=== PATIENT | male | born 1950 | race Caucasian/White ===

== ENCOUNTER 2017-06-13 09:00 | Inpatient (IN) | payer OTHER, MEDICARE ==
[~2017-06-13] VITALS: Ht 167.6 cm; Wt 98.5 kg
[2017-07-03] VITALS (10 sets, daily range): BP systolic 138–148; BP diastolic 71–78; PULSE 62–76; RESP 16–18; TEMP 97.6–98.5; O2SAT 93–96
--- NOTE | 2017-07-03 06:33 | HHI.HP ---
History of Present Illness Chief Complaint: AAA and R MAUDE aneurysm History of Present Illness 67 yo male with AAA, asymptomatic. Measures 5.6 cm. Presents for elective repair to include EVAR and RIGHT hypogastric embolization. Past/Family/Social History Past Medical History AAA CAD - recent LHC was negative Hypercholesterolemia DM tobacco abuse COPD Past Surgical History skin CA LHC with stents Social History tobacco abuse Family History brother with AAA Review of Systems Constitutional: DENIES: Fatigue, Chills Respiratory: COMPLAINS OF: Cough, Sputum production, DENIES: Shortness of breath Cardiovascular: COMPLAINS OF: Claudication, DENIES: Chest pain, Dyspnea on Exertion Physical Exam Neuro: resting comfortably, GONZALES HEENT: NC/AT; anicteric sclera Neck: no JVD Heart: reg rate, no M Lungs: clear B Abdomen: nontender Vascular: palpable femoral pulses Extremities: R UE ecchymoses from diagnostic LHC, nontender Cr 0.98 INR 1.0 Hct 48 plt 154 UA negative CXR negative EKG sinus bradycardia without specific ST changes CTA reviewed Caprini VTE Risk Assessment Caprini VTE Risk Assessment: Mod/High Risk (score >= 2) Caprini Risk Assessment Model Point Value = 1 Point Value = 2 Point Value = 3 Point Value = 5 Age 41-60 Minor surgery BMI > 25 kg/m2 Swollen legs Varicose veins or History of unexplained or recurrent spontaneous Oral contraceptives or hormone replacement Sepsis (< 1 month) Serious lung disease, including pneumonia (< 1 month) Abnormal pulmonary function Acute myocardial infarction Congestive heart failure (< 1 month) History of inflammatory bowel disease Medical patient at bed rest Age 61-74 Arthroscopic surgery Major open surgery (> 45 min) Laparoscopic surgery (> 45 min) Malignancy Confined to bed (> 72 hours) Immobilizing plaster cast Central venous access Age >= 75 History of VTE Family history of VTE Factor V Leiden Prothrombin [id number] Lupus anticoagulant Anticardiolipin antibodies Elevated serum homocysteine Heparin-induced thrombocytopenia Other congenital or acquired thrombophilia Stroke (< 1 month) Elective arthroplasty Hip, pelvis, or leg fracture Acute spinal cord injury (< 1 month) Prophylaxis Regimen Total Risk Factor Score Risk Level Prophylaxis Regimen 0-1 Low Early ambulation 2 Moderate Order ONE of the following: *Sequential Compression Device (SCD) *Heparin 5000 units SQ BID 3-4 Higher Order ONE of the following medications: *Heparin 5000 units SQ TID *Enoxaparin/Lovenox 40 mg SQ daily (WT < 150 kg, CrCl > 30 mL/min) *Enoxaparin/Lovenox 30 mg SQ daily (WT < 150 kg, CrCl > 10-29 mL/min) *Enoxaparin/Lovenox 30 mg SQ BID (WT < 150 kg, CrCl > 30 mL/min) AND/OR *Sequential Compression Device (SCD) 5 or more Highest Order ONE of the following medications: *Heparin 5000 units SQ TID (Preferred with Epidurals) *Enoxaparin/Lovenox 40 mg SQ daily (WT < 150 kg, CrCl > 30 mL/min) *Enoxaparin/Lovenox 30 mg SQ daily (WT < 150 kg, CrCl > 10-29 mL/min) *Enoxaparin/Lovenox 30 mg SQ BID (WT < 150 kg, CrCl > 30 mL/min) AND *Sequential Compression Device (SCD) Assessment and Plan Plan EVAR with R hypogastric embolization Discussed procedure again with the patient and his To OR Discharge Planning Likely tomorrow (POD#1) [phone] Frederick Murray MD Jul 03, 2017 06:33
[2017-07-03] MEDS ORDERED: ASPI-183 PO (07:14)
[2017-07-03] MEDS ORDERED: LOSA100T3 PO (07:14)
[2017-07-03] MEDS ORDERED: HEPARIN SODIUM - IV 10,000 UNITS/10 ML VIAL ONE (07:14)
[2017-07-03] MEDS ORDERED: SIMV40TA PO (07:14)
[2017-07-03] MEDS ORDERED: METO100T PO (07:14)
[2017-07-03] MEDS ORDERED: METF500T PO (07:14)
[2017-07-03] MEDS ORDERED: HEPARIN-NS/PF INJ 500 ML ONE (07:14)
[2017-07-03] MEDS ORDERED: PROTAMINE SULFATE 50 MG/5 ML VIAL ONE ×2 (07:14→09:05)
[2017-07-03] MEDS ORDERED: ceFAZolin 2 GM PREMIX 50 ML ONE (07:15)
[2017-07-03] MEDS ORDERED: MIDAZOLAM HCL 2 MG/2 ML VIAL ONE (07:26)
[2017-07-03] MEDS ORDERED: FAMOTIDINE 20 MG/2 ML VIAL ONE (07:27)
[2017-07-03] MEDS ORDERED: ACETAMINOPHEN 1000 MG/100 ML 100 ML IV ONE (07:27)
[2017-07-03] MEDS ORDERED: MAGNESIUM HYDROXIDE SUSP 30 ML CUP PO PRN (07:30)
[2017-07-03] MEDS ORDERED: BISACODYL 10 MG SUPP RECTAL PRN (07:30)
[2017-07-03] MEDS ORDERED: LACTULOSE SYRUP 20 GM/30 ML CUP PO PRN (07:30)
[2017-07-03] MEDS ORDERED: DEXTROSE 50% IN WATER 50 ML VIAL(D50) IV PUSH PRN (07:30)
[2017-07-03] MEDS ORDERED: SENNOSIDES 8.6 MG TAB PO PRN (07:30)
[2017-07-03] MEDS ORDERED: HYDROmorphone HCL 2 MG TAB PO PRN (07:30)
[2017-07-03] MEDS ORDERED: GLUCAGON 1 MG/ML VIAL OTHER PRN (07:30)
[2017-07-03 07:32] LABS: AUTOMATED NEUTROPHIL # 6.2 TH/MM3 (1.8-7.7); BASOPHIL # 0.1 TH/MM3 (0-0.2); BASOPHIL % 0.8 % (0.0-2.0); EOSINOPHIL # 0.3 TH/MM3 (0-0.4); EOSINOPHIL % 3.4 % (0.0-4.0); HEMATOCRIT 45.6 % (39.0-51.0); HEMO FLAGS DIFF FINAL; LYMPH % 26.1 % (9.0-44.0); LYMPHOCYTE # 2.6 TH/MM3 (1.0-4.8); MEAN CELL VOLUME 93.6 FL (80.0-100.0); MEAN CORPUSCULAR HEMOGLOBIN 32.2 PG (27.0-34.0); MEAN CORPUSCULAR HGB CONC 34.4 % (32.0-36.0); MONO % 7.3 % (0.0-8.0); NEUT % 62.4 % (16.0-70.0); PLATELET COUNT 149 TH/MM3 (150-450); RED BLOOD COUNT 4.88 MIL/MM3 (4.50-5.90); RED CELL DISTRIBUTION WIDTH 14.5 % (11.6-17.2); WHITE BLOOD COUNT 9.9 TH/MM3 (4.0-11.0)
[2017-07-03] MEDS ORDERED: RESP: ALBUTEROL 2.5 MG/IPRATROPIUM 0.5 MG NEB (SCH) ONE (07:46)
--- NOTE | 2017-07-03 08:56 | EKG ---
Date Performed: 07/03/2017 Time Performed: 07:52:31 PTAGE: 67 years EKG: Sinus rhythm POSSIBLE INFERIOR MYOCARDIAL INFARCTION , PROBABLY OLD MODERATE T-WAVE ABNORMALITY, CONSIDER LATERAL ISCHEMIA ABNORMAL ECG NO PREVIOUS TRACING DOCTOR: Antwan Ken Interpretating Date/Time 07/03/2017 08:55:51
[2017-07-03] MEDS: ASPIRIN 325 MG TAB PO SCH (09:00)
[2017-07-03] MEDS ORDERED: NON-FORMULARY DRUG (Losartan-Hydrochlorothiazide 1 TAB) PO SCH (09:00)
[2017-07-03] MEDS ORDERED: MORPHINE SULFATE 2 MG/ML INJ IV PUSH PRN (09:15)
[2017-07-03] MEDS: LOSARTAN 50 MG TAB PO SCH (09:30)
[2017-07-03] MEDS: HYDROCHLOROTHIAZIDE 12.5 MG CAP PO SCH (09:30)
[2017-07-03] MEDS ORDERED: RESP: ALBUTEROL 2.5 MG/3 ML NEB (PRN) NEB (10:00)
--- NOTE | 2017-07-03 10:02 | HHI.PR ---
Immediate Post Op Note Procedure Date: Jul 03, 2017 Pre Op Diagnosis: AAA and R MAUDE aneurysm Post Op Diagnosis: AAA and R MAUDE aneurysm Surgeon: Frederick Murray Shot Polisher And Inspector(s): none Procedure: 1. EVAR (Zenith) 2. R hypogastric artery aneurysm 3. B FREELANCE WRITER Perclose Findings: successful exclusion of AAA preservation of L hypogastric artery delayed type II endoleak Additional Information: strong B pedal Doppler signals Complications: none Specimen(s) removed: none Estimated blood loss: 50mL Anesthesia: General Drains: None Fluids: 1200mL IVF Urinary Output (mLs): 300 Patient to: PACU Patient Condition: Good Implant/Devices: SEE IMPLANT LOG (if applicable) Date/Time of Procedure: SEE SURGICAL CARE RECORD Frederick Murray MD Jul 03, 2017 10:02
[2017-07-03] MEDS ORDERED: DO NOT ADM ANY ANTICOAGULANT DRUGS PRN (10:12)
[2017-07-03] MEDS: INSULIN ASPART SUPPLEMENTAL SCALE SQ SCH ×4 (11:00→21:53)
[2017-07-03 11:47] LABS: BICARBONATE 25.5 MEQ/L (21.0-32.0); MAGNESIUM 2.1 MG/DL (1.5-2.5); POTASSIUM 4.5 MEQ/L (3.5-5.1)
[2017-07-03] MEDS ORDERED: NORMOSOL R INJ 1,000 ML IV ONE (12:00)
[2017-07-03] MEDS ORDERED: PHENYLEPH/NS 1000 MCG/10 ML SYR IV ONE (12:00)
[2017-07-03] MEDS ORDERED: SODIUM CHLORID 0.9% 500 ML INJ 500 ML IV ONE (12:00)
[2017-07-03] MEDS ORDERED: LIDOCAINE HCL 1% PF 5 ML SYRINGE OTHER ONE (12:00)
[2017-07-03] MEDS ORDERED: PROPOFOL 200 MG/20 ML AMP IV ONE (12:00)
[2017-07-03] MEDS ORDERED: ROCURONIUM INJ 50 MG/5 ML SYRINGE IV PUSH ONE (12:00)
[2017-07-03] MEDS ORDERED: ONDANSETRON HCL 4 MG/2 ML VIAL IV PUSH ONE (12:00)
[2017-07-03] MEDS ORDERED: GLYCOPYRROLATE 1 MG/5 ML SYRINGE IV PUSH ONE (12:00)
[2017-07-03] MEDS ORDERED: NEOSTIGMINE 3 MG/3 ML SYR IV ONE (12:00)
[2017-07-03] MEDS ORDERED: PRAVASTATIN SOD 80 MG TAB PO SCH (21:00)
[2017-07-03] MEDS: DOCUSATE SODIUM 50 MG/SENNA 8.6 MG TAB PO SCH (21:05)
[2017-07-03] MEDS: METOPROLOL TARTRATE 100 MG TAB PO SCH (21:06)
[2017-07-04] VITALS (9 sets, daily range): BP systolic 127–130; BP diastolic 64–69; PULSE 60–70; RESP 16–18; TEMP 97.8–98.3; O2SAT 93–95
[2017-07-04 04:44] LABS: HEMATOCRIT 40.7 % (39.0-51.0); MEAN CELL VOLUME 93.7 FL (80.0-100.0); MEAN CORPUSCULAR HEMOGLOBIN 32.4 PG (27.0-34.0); MEAN CORPUSCULAR HGB CONC 34.6 % (32.0-36.0); PLATELET COUNT 104 TH/MM3 (150-450); RED BLOOD COUNT 4.34 MIL/MM3 (4.50-5.90); RED CELL DISTRIBUTION WIDTH 13.9 % (11.6-17.2); REVIEW FLAG FINAL; WHITE BLOOD COUNT 11.1 TH/MM3 (4.0-11.0)
[2017-07-04 05:11] LABS: BICARBONATE 27.4 MEQ/L (21.0-32.0)
--- NOTE | 2017-07-04 07:34 | MP ---
cc: NIKKI MURRAY MD DATE OF SURGERY 07/03/2017 PRIMARY DIAGNOSIS Abdominal aortic aneurysm and right common iliac artery aneurysm. POSTOPERATIVE DIAGNOSIS Abdominal aortic aneurysm and right common iliac artery aneurysm. PROCEDURE 1. Right hypogastric artery embolization. 2. Endovascular abdominal aortic exclusion with a bifurcated device with two docking limbs. 3. Bilateral common femoral artery Perclose. SURGEON Nikki Murray MD. ANESTHESIA General INDICATIONS Mr. Franco is a 67-year gentleman with an abdominal aortic aneurysm that is over 5-1/2 cm. He also has a right common iliac artery aneurysm. He is taken to the operating room for endovascular exclusion and necessary right hypogastric artery embolization. DESCRIPTION OF PROCEDURE Informed consent obtained from the patient. He was taken to the operating room and placed supine on the operating room table. An appropriate time-out was taken to ensure the patient's identity, operative site and planned procedure. Two grams of Ancef were initiated prior to the skin incision and will be discontinued after a single preoperative dose. Everyone in the room agreed with the time-out and we proceeded. The patient was prepped from his nipples to his knees. A 21 gauge micropuncture needle was used to access both common femoral arteries. This was exchanged using Seldinger technique for micropuncture sheath through which a 0.035 Storq wire was introduced. The micropuncture was changed for a 6-Maltese sheath which was used to dilate the skin, subcutaneous tract and arteriotomy. Two Perclose ProGlide sutures were inserted in each groin and tagged, but not tied down. These will be used later. A short 8-Maltese sheath was placed on the right and a long 8-Maltese sheath was placed on the left. At this point, the patient was systemically heparinized and throughout the remainder of the case, the ACT was kept greater than 250. A soft SOS catheter was placed up the left-hand side through the 8-Maltese 25 cm sheath and the Storq wire was exchanged for a Glidewire. The Glidewire was navigated down to the right external iliac artery and the soft was exchanged for a Berenstein catheter. Using Berenstein and glide, we were able to navigate into the right hypogastric artery and a this was coil embolized without any difficulty and the completion angiogram showed excellent placement of the coil in the proximal right hypogastric artery. The catheter was backed up into the aorta and the STORQ wire was advanced into the aorta. Over the STORQ wire on the left-hand side, a marker straight flush catheter was placed and over the right hand STORQ wire, catheter was placed to exchange the STORQ for a Lunderquist wire. The 8-Maltese 10 cm sheath on the right was removed and Patito dilators were used to dilate the skin, subcutaneous tract and arteriotomy. The main device, which was a Cook Zenith 30 x 96 was introduced and an angiography was performed to locate the renal arteries. The device was deployed such that the proximal aspect of the fabric was immediately caudal to the lowermost renal artery. The device was deployed down to the contralateral gate and then the top cap was deployed without difficulty. A road runner wire was placed through the marker catheter on the left and the marker catheter was exchanged for a Cobra and using the Cobra and road-runner we were able to navigate into the contralateral gate. An angiogram confirmed that we are indeed into the lumen of the Endograft and a Lunderquist wire was advanced up to the proximal descending thoracic aorta from the left-hand side. A marker catheter was then reintroduced and an angiogram was performed to locate the left hypogastric artery. The marker catheter and 8-Maltese sheath were removed. Patito dilators were used to dilate the skin, subcutaneous tract and arteriotomy and the contralateral limb, which was a 13 x 74 spiral Z-limb was introduced with sufficient overlap and deployed without difficulty. The remainder of the main device was deployed and the top cap was recaptured and the delivery system was removed except for the outer sheath from the right-hand side. A marker catheter was placed over the right-hand side and angiogram confirmed the intended area of landing of the ipsilateral limb into the external iliac artery and the ipsilateral limb was then introduced which was an 11 x 74 and deployed without difficulty. A Coda balloon was used to balloon the proximal and distal ends as well as the junctions and a completion angiogram showed an excellent result. Both renal arteries filled. There was filling of the left hypogastric artery. No filling of the right hypogastric artery and only a delayed type 2 endoleak. The wire, catheter, and sheaths were removed and the groins were closed by tying down the Perclose devices. Hemostasis was achieved in the groin. There were Doppler signals in the feet and the heparin was reversed with protamine. The groin incisions were closed with 4-0 Monocryl. The sponge and needle counts were correct at the end of the case. I was present, scrubbed and performed the entire procedure. MD COLLEEN Guzman/LEYDA /5:36 PM /7:24 AM MTDD
--- NOTE | 2017-07-04 08:05 | PD.VS.PN ---
Subjective POD #: 1 Procedure(s): EVAR w/ R hypogastric artery embolization Subjective/Hospital Course Pt c/o chronic back pain but nothing new no abdominal discomfort albino po +voiding since Ferrera out ambulating Objective Vitals/I&O Date Time Temp Pulse Resp B/P (MAP) Pulse Ox O2 Delivery O2 Flow Rate FiO2 07/04/17 06:05 61 07/04/17 05:04 60 07/04/17 04:00 61 07/04/17 03:00 98.3 63 16 130/69 (89) 93 07/04/17 03:00 68 07/04/17 02:00 63 07/04/17 01:00 64 07/04/17 00:00 70 07/03/17 23:00 70 07/03/17 23:00 98.4 69 16 148/74 (98) 93 07/03/17 22:00 76 07/03/17 21:00 76 07/03/17 20:00 72 07/03/17 19:00 70 07/03/17 19:00 98.5 72 18 138/71 (93) 93 07/03/17 18:00 67 07/03/17 17:09 72 07/03/17 16:23 69 07/03/17 15:56 97.6 70 18 138/78 (98) 95 07/03/17 15:56 70 07/03/17 15:17 18 07/03/17 12:30 97.8 62 18 138/76 (96) 96 07/03/17 12:30 62 07/03/17 11:50 65 14 143/78 (99) 96 Nasal Cannula 2 07/03/17 11:30 61 14 144/82 (102) 94 Nasal Cannula 2 07/03/17 11:15 60 14 140/73 (95) 96 Nasal Cannula 2 07/03/17 11:00 60 14 137/73 (94) 96 Nasal Cannula 2 07/03/17 10:45 61 14 141/73 (95) 95 Nasal Cannula 2 07/03/17 10:30 62 14 145/76 (99) 94 Nasal Cannula 4 07/03/17 10:13 97.5 77 14 146/82 (103) 96 Nasal Cannula 4 07/04/17 07/04/17 07/04/17 07:00 15:00 23:00 Intake Total 600 ml Output Total 75 ml Balance 525 ml Exam: resting comfortably groin sites ok Laboratory Laboratory Tests Test 07/03/17 10:50 07/04/17 03:55 Blood Urea Nitrogen 16 14 Creatinine 0.97 0.92 Random Glucose 136 173 Calcium Level 8.3 8.4 Magnesium Level 2.1 Sodium Level 134 133 Potassium Level 4.5 4.0 Chloride Level 101 99 Carbon Dioxide Level 25.5 27.4 Anion Gap 8 7 Estimat Glomerular Filtration Rate 77 82 White Blood Count 11.1 Red Blood Count 4.34 Hemoglobin 14.1 Hematocrit 40.7 Mean Corpuscular Volume 93.7 Mean Corpuscular Hemoglobin 32.4 Mean Corpuscular Hemoglobin Concent 34.6 Red Cell Distribution Width 13.9 Platelet Count 104 Mean Platelet Volume 9.1 Assessment and Plan Plan POD#1 s/p EVAR with R hypogastric embolization Looks great d/c today Discharge Planning today [phone] Frederick Murray MD Jul 04, 2017 08:05
--- NOTE | 2017-07-04 08:08 | PD.VS.DC ---
Discharge Summary Admission Date: Jul 03, 2017 at 05:56 Discharge Date: Jul 04, 2017 Admission Diagnosis: Discharge Diagnosis: (1) Tobacco abuse ICD Codes: Z72.0 - Tobacco use (2) HTN (hypertension) ICD Codes: I10 - Essential (primary) hypertension (3) Common iliac aneurysm ICD Codes: I72.3 - Aneurysm of iliac artery Status: Resolved (4) AAA (abdominal aortic aneurysm) without rupture ICD Codes: I71.4 - Abdominal aortic aneurysm, without rupture Diagnosis: Principal Status: Resolved Brief History from admission 67 yo male with AAA, asymptomatic. Measures 5.6 cm. Presents for elective repair to include EVAR and RIGHT hypogastric embolization. Procedure(s): EVAR w/ R hypogastric artery embolization Significant Findings Laboratory Tests Test 07/03/17 07:10 07/03/17 10:50 07/04/17 03:55 Platelet Count 149 TH/MM3 (150-450) 104 TH/MM3 (150-450) Random Glucose 136 MG/DL (74-106) 173 MG/DL (74-106) Calcium Level 8.3 MG/DL (8.5-10.1) 8.4 MG/DL (8.5-10.1) Sodium Level 134 MEQ/L (136-145) 133 MEQ/L (136-145) Estimat Glomerular Filtration Rate 77 ML/MIN (>89) 82 ML/MIN (>89) White Blood Count 11.1 TH/MM3 (4.0-11.0) Red Blood Count 4.34 MIL/MM3 (4.50-5.90) Hospital Course: Pt was admitted post-operatively and did well. Ferrera removed NOS and + voiding. Ready for d/c POD#1. Ambulating, tolerating po, and only pain is chronic back pain. Discharge Condition: Good Discharge Disposition: Discharge Home Discharge Instructions: No heavy lifting Call with any questions. Any questions or concerns: Call [facility] at [facility] [phone] Frederick Murray MD Jul 04, 2017 08:08
[2017-07-04] MEDS ORDERED: ENOXAPARIN SODIUM 30 MG/0.3 ML SYRINGE SQ SCH (09:00)
[2017-07-04] MEDS: METOPROLOL TARTRATE 100 MG TAB PO SCH (09:00)
[2017-07-04] MEDS: INSULIN ASPART SUPPLEMENTAL SCALE SQ SCH (09:09)
[2017-07-04] MEDS: HYDROCHLOROTHIAZIDE 12.5 MG CAP PO SCH (09:10)
[2017-07-04] MEDS: ASPIRIN 325 MG TAB PO SCH (09:10)
[2017-07-04] MEDS: LOSARTAN 50 MG TAB PO SCH (09:14)
[2017-07-04] MEDS: DOCUSATE SODIUM 50 MG/SENNA 8.6 MG TAB PO SCH (09:18)
[2017-07-04] MEDS ORDERED: OXYC1CAP PO (10:49)
== END 2017-07-04 12:53 | disposition home or self-care (01) | DRG 269 ==
LOC: HSDI 07-03 05:56 → HCPC 07-03 11:54
PROVIDERS: ADMIT Surgery; ATTEND Surgery
PROC: 04V03DZ Restriction of Abdominal Aorta with Intraluminal Device, Percutaneous Approach (ICD-10-PCS; principal; 2017-07-03 07:58)
PROC: 04L23DZ Occlusion of Gastric Artery with Intraluminal Device, Percutaneous Approach (ICD-10-PCS; 2017-07-03 07:58)
DX: I71.4 Abdominal aortic aneurysm, without rupture (principal); I72.3 Aneurysm of iliac artery; J44.9 Chronic obstructive pulmonary disease, unspecified; I10 Essential (primary) hypertension; E11.9 Type 2 diabetes mellitus without complications; E78.00 Pure hypercholesterolemia, unspecified; Z72.0 Tobacco use; G89.29 Other chronic pain; M54.9 Dorsalgia, unspecified
CPT/HCPCS: 80048; 83735; 85025; 85027; 86850; 86900; 86901; 93005; 94664; C1725; C1769; C1874; J0131; J0690; J1644; J1650; J1815; J2250; J2370; J2405; J2710; J2720; J3010; J7040